=== PATIENT | male | born 1955 | race Caucasian/White ===

== ENCOUNTER 2018-03-22 11:53 | Observation (INO) | payer OTHER ==
[2018-03-22 13:05] LABS: ADD MAN DIFF? NO
[2018-03-22 13:09] LABS: WHITE BLOOD COUNT 9.7 10^3/ul (4.8-10.8)
[2018-03-22 13:09] LABS: BASOPHIL # 0.1 10^3/ul (0.0-0.1); BASOPHILS % 0.9 % (0.0-2.0); EOSINOPHILS # 0.1 10^3/ul (0.0-0.5); HEMATOCRIT 45.2 % (42.0-52.0); HEMOGLOBIN 15.2 g/dl (14.0-18.0); LYMPHOCYTES # 2.2 10^3/ul (0.8-2.9); LYMPHOCYTES % 22.9 % (15.0-51.0); MEAN CORPUSCULAR HEMOGLOBIN 30.3 pg (29.0-33.0); MEAN CORPUSCULAR HGB CONC 33.6 g/dl (32.0-37.0); MEAN PLATELET VOLUME 10.2 fl (7.4-10.4); MONOCYTE # 0.7 10^3/ul (0.3-0.9); MONOCYTES % 7.3 % (0.0-11.0); NEUTROPHIL # 6.5 10^3/ul (1.6-7.5); NEUTROPHILS % 67.5 % (39.0-77.0); PLATELET COUNT 248 10^3/UL (140-415); RED BLOOD COUNT 5.02 10^6/ul (4.70-6.10); RED CELL DISTRIBUTION WIDTH 12.6 % (11.5-14.5)
[2018-03-22] MEDS: KETOROLAC 30 MG INJ IV (13:19)
[2018-03-22] MEDS: ASPIRIN 81 MG TAB PO (13:19)
[2018-03-22] MEDS: NITROGLYCERIN (SL) 0.4 MG TAB SL (13:19)
[2018-03-22] MEDS: NITROGLYCERIN 2% 1 GM OINT PKT TD (13:19)
[2018-03-22 13:26] LABS: ANION GAP 15 (8-16); BLOOD UREA NITROGEN 14 mg/dl (7-20); CALCIUM 9.2 mg/dl (8.4-10.2); CARBON DIOXIDE 24 mmol/L (21-31); CHLORIDE 106 mmol/L (97-110); GLUCOSE 125 mg/dl (70-220); SODIUM 141 mmol/L (135-144)
[2018-03-22 13:38] LABS: TROPONIN-I < 0.010 ng/ml (0.000-0.120)
[2018-03-22] MEDS ORDERED: NACL 0.9% 3 ML SYG IV (14:30)
[2018-03-22] MEDS ORDERED: morphine 2 MG INJ IV (14:30)
[2018-03-22] MEDS ORDERED: ACETAMINOPHEN 325 MG TAB (14:57)
[2018-03-22] MEDS: ACETAMINOPHEN 325 MG TAB PO (15:05)
[2018-03-22] MEDS ORDERED: ACETAMINOPHEN 325 MG TAB PO (15:30)
[2018-03-22] MEDS ORDERED: ONDANSETRON 4 MG INJ IV (15:30)
[2018-03-22 19:13] LABS: CREATINE KINASE 541 IU/L (23-200)
[2018-03-22 19:24] LABS: CK INDEX 2.9; TROPONIN-I < 0.010 ng/ml (0.000-0.120)
[2018-03-22] MEDS: HYDROCODONE/APAP (5/325) TAB PO (21:26)
[2018-03-23 01:34] LABS: CREATINE KINASE 471 IU/L (23-200)
[2018-03-23 01:48] LABS: CK INDEX 3.3; TROPONIN-I < 0.010 ng/ml (0.000-0.120)
[2018-03-23 07:46] LABS: ADD MAN DIFF? NO
[2018-03-23 07:53] LABS: WHITE BLOOD COUNT 8.2 10^3/ul (4.8-10.8)
[2018-03-23 07:53] LABS: BASOPHIL # 0.1 10^3/ul (0.0-0.1); EOSINOPHILS # 0.2 10^3/ul (0.0-0.5); EOSINOPHILS % 1.8 % (0.0-7.0); HEMATOCRIT 43.2 % (42.0-52.0); HEMOGLOBIN 14.2 g/dl (14.0-18.0); LYMPHOCYTES % 24.7 % (15.0-51.0); MEAN CORPUSCULAR HEMOGLOBIN 29.8 pg (29.0-33.0); MEAN CORPUSCULAR HGB CONC 32.9 g/dl (32.0-37.0); MEAN CORPUSCULAR VOLUME 90.8 fl (82.0-101.0); MEAN PLATELET VOLUME 11.2 fl (7.4-10.4); MONOCYTE # 0.7 10^3/ul (0.3-0.9); MONOCYTES % 8.8 % (0.0-11.0); NEUTROPHIL # 5.2 10^3/ul (1.6-7.5); NEUTROPHILS % 63.1 % (39.0-77.0); PLATELET COUNT 233 10^3/UL (140-415); RED BLOOD COUNT 4.76 10^6/ul (4.70-6.10); RED CELL DISTRIBUTION WIDTH 12.8 % (11.5-14.5)
[2018-03-23 08:05] LABS: HEMOGLOBIN A1C 5.5 % (0-5.9)
[2018-03-23 08:13] LABS: ANION GAP 9 (8-16); BLOOD UREA NITROGEN 16 mg/dl (7-20); CALCIUM 8.6 mg/dl (8.4-10.2); CARBON DIOXIDE 27 mmol/L (21-31); CHLORIDE 108 mmol/L (97-110); CHOL/HDL RATIO 3.4 RATIO; CHOLESTEROL 168 mg/dl (100-200); CREATININE 0.85 mg/dl (0.61-1.24); GLUCOSE 96 mg/dl (70-220); HDL CHOLESTEROL 49 mg/dl (30-78); LDL CHOLESTEROL,CALCULATED 91 mg/dl; MAGNESIUM 2.1 mg/dl (1.7-2.5); POTASSIUM 4.1 mmol/L (3.5-5.1); SODIUM 140 mmol/L (135-144); TRIGLYCERIDES 140 mg/dl (0-149)
[2018-03-23] MEDS: ENOXAPARIN 40 MG/0.4 ML SYG SC (09:20)
[2018-03-23] MEDS: REGADENOSON 0.4 MG/5 ML SYG (13:00)
== END 2018-03-23 17:16 | disposition home or self-care (01) ==
LOC: E/R 11:53 → MS4 15:17
DX: M94.0 Chondrocostal junction syndrome [Tietze] (principal); M62.82 Rhabdomyolysis; E78.00 Pure hypercholesterolemia, unspecified; Z87.891 Personal history of nicotine dependence; Z82.49 Family history of ischemic heart disease and other diseases of the circulatory system
CPT/HCPCS: 71045; 78452; 80048; 80061; 82550; 82553; 83036; 83735; 84484; 85025; 93005; 93017; 96374; 99285-25; G0378

== ENCOUNTER 2018-08-16 12:12 | Emergency (ER) | payer OTHER ==
[2018-08-16] MEDS ORDERED: KETOROLAC 15 MG INJ IV (12:49)
[2018-08-16] MEDS: KETOROLAC 15 MG INJ IM (12:57)
== END 2018-08-16 14:35 | disposition home or self-care (01) ==
LOC: FTE 12:12
DX: M54.42 Lumbago with sciatica, left side (principal); M54.41 Lumbago with sciatica, right side
CPT/HCPCS: 72131; 96372; 99285-25